=== PATIENT | female | born 1945 | race Caucasian/White ===

== ENCOUNTER 2018-12-20 09:00 | Observation (INO) | payer MEDICARE ==
[2018-12-18 15:03] VITALS: BP 102/54
[2018-12-18 15:07] LABS: BASOPHILS % (AUTO) 1.1 % (0.0-5.0); EOSINOPHILS % (AUTO) 3.3 % (0.0-8.0); HEMATOCRIT 45.1 % (36-48); LYMPHOCYTES % (AUTO) 27.4 % (21.0-51.0); MEAN CORPUSCULAR HEMOGLOBIN 29.4 pg (27.0-33.0); MEAN CORPUSCULAR HGB CONC 33.2 g/dL (32.0-36.0); MEAN CORPUSCULAR VOLUME 88.7 fL (79-99); MONOCYTES % (AUTO) 7.2 % (3.0-13.0); PLATELET COUNT (AUTO) 179 K/uL (130-400); RED BLOOD CELL COUNT(AUTO) 5.08 MIL/uL (4.00-5.50); RED CELL DISTRIBUTION WIDTH 14.8 % (11.0-15.5); WHITE BLOOD COUNT (AUTO) 7.7 K/uL (4.8-10.8)
[2018-12-18 15:23] LABS: INR 1.04 (0.85-1.15); PARTIAL THROMBOPLASTIN TIME 34.3 SEC (26.3-35.5); PROTHROMBIN TIME 10.9 SEC (9.6-11.6)
[2018-12-18 15:34] LABS: CREATININE 0.9 mg/dL (0.5-1.5); POTASSIUM 4.1 mmol/L (3.5-5.1)
[2018-12-20] VITALS (9 sets, daily range): BP systolic 112–146; BP diastolic 52–92
[~2018-12-20] VITALS: Ht 174 cm; Wt 104.4 kg
[~2018-12-20 09:00] MED LIST: CEFAZOLIN SODIUM 1 GM VIAL IVP ONE; SODIUM CHLORIDE 0.9% 1000ML 1,000 ML IV SCH
--- NOTE | 2018-12-20 09:07 | NUR ---
PRE-PROCEDURE RECEIVED FROM HOME VIA AMBULATING ACCOMPANIED BY FOR SCHEDULED ICD INSERTION. AWAKE IN NO ACUTE DISTRESS. PT WITH EXERTIONAL SOA/DENIES CHEST PAIN. CONNECTED TO CONTINUOUS CARDIOPULMONARY MONITORING. SIDE RAILS UP X2, BED IN LOWEST POSITION, CALL LIGHT W/IN REACH.
[2018-12-20] MEDS ORDERED: ROSU5TAB PO (10:31)
[2018-12-20] MEDS ORDERED: DILT120T PO (10:32)
[2018-12-20] MEDS ORDERED: ASPI-1026 PO (10:33)
[2018-12-20] MEDS ORDERED: VIT D-3 PO (10:36)
[2018-12-20] MEDS ORDERED: MAGNESIUM MALATE PO (10:37)
[2018-12-20] MEDS ORDERED: [UNRECOGNIZED DRUG - OTHER] PO (10:38)
[2018-12-20] MEDS ORDERED: VITA40TA PO (10:39)
--- NOTE | 2018-12-20 13:21 | NUR ---
PRE-PROCEDURE AWAKE IN NO ACUTE DISTRESS. DENIES PAIN/SOA.
[2018-12-20] MEDS ORDERED: CEFAZOLIN SODIUM 1 GM VIAL ONE (15:41)
[2018-12-20] MEDS ORDERED: BUPIVACAINE/PF 0.25% 50ML VIAL IJ ONE (15:41)
[2018-12-20] MEDS ORDERED: IOHEXOL-350 75 ML VIAL IV ONE (15:41)
[2018-12-20] MEDS ORDERED: LIDOCAINE HCL 1% MDV 50ML VIAL ONE (15:42)
[2018-12-20] MEDS ORDERED: MEPERIDINE-PF 25 MG/ML SYG ONE ×5 (16:04→17:16)
[2018-12-20] MEDS ORDERED: MIDAZOLAM HCL 1 MG/ML 2ML VIAL ONE ×5 (16:04→17:16)
[2018-12-20] MEDS ORDERED: DIGOXIN 250 MCG/ML 2ML AMP ONE (17:30)
[2018-12-20] MEDS ORDERED: OCTYL 2-CYANOACRYLATE 1 EACH TP ONE (17:47)
[2018-12-20] MEDS ORDERED: ALPRAZOLAM 0.5 MG TABLET PO PRN (18:00)
[2018-12-20] MEDS ORDERED: DIGOXIN 250 MCG/ML 2ML AMP IV SCH (22:00)
[2018-12-21] VITALS: BP 108/68
[2018-12-21] MEDS: CEFAZOLIN SODIUM 1 GM VIAL IVP SCH ×2 (00:58→06:23)
[2018-12-21] MEDS: ACETAMINOPHEN 325 MG TAB PO PRN ×3 (01:08→11:18)
[2018-12-21 07:00] VITALS: BP 150/75
[2018-12-21] MEDS ORDERED: VIT D3 5000 UNIT PO SCH (09:00)
[2018-12-21] MEDS ORDERED: DILTIAZEM HCL 180 MG CAP.SR.24H PO SCH (09:00)
[2018-12-21] MEDS ORDERED: ASPIRIN 81 MG EC TAB PO SCH (09:00)
[2018-12-21] MEDS ORDERED: MAGNESIUM MALATE PO SCH (09:00)
[2018-12-21] MEDS ORDERED: DIGOXIN 125 MCG TABLET PO SCH (09:00)
[2018-12-21 11:00] VITALS: BP 134/72
[2018-12-21] MEDS ORDERED: AEC81 PO (15:05)
[2018-12-21] MEDS ORDERED: DILT180C3 PO (15:05)
[2018-12-21] MEDS ORDERED: DIGO125T87 PO (15:05)
[2018-12-21] MEDS ORDERED: DOXY100T2 PO (15:06)
== END 2018-12-21 15:30 | disposition home or self-care (01) ==
LOC: DAH 09:00 → 2AH 09:01 → 2DH 19:44
PROVIDERS: ADMIT Internal Medicine; ATTEND Internal Medicine
DX: I48.0 Paroxysmal atrial fibrillation (principal); I49.5 Sick sinus syndrome; I34.0 Nonrheumatic mitral (valve) insufficiency; J45.909 Unspecified asthma, uncomplicated; K76.0 Fatty (change of) liver, not elsewhere classified; Z95.0 Presence of cardiac pacemaker
CPT/HCPCS: 33208; 33225; 36415; 71046; 76700; 80048; 82172; 82247; 82390; 82977; 83010; 83516; 83883; 84460; 85025; 85610; 85730; 86706; 86708; 86717; 93005 ×2; 96374; 96375; 96376; A4606; C1769 ×3; C1894; C1898 ×2; C1900; C2621; G0378 ×30; J0690 ×3; J1160 ×2; J2175 ×5; J2250 ×5; J3490 ×2; Q9967; 99156; 99157